=== PATIENT | female | born 1945 | race Native Hawaiian/Other Pacific Islander ===

== ENCOUNTER → 2018-10-17 11:47 | Outpatient (CLI) | payer MEDICARE, BC, SELFPAY ==
--- NOTE | 2018-10-17 11:49 | DI.MG.S_ITS ---
BILATERAL DIGITAL SCREENING MAMMOGRAM 3D/2D WITH CAD: 10/17/2018 CLINICAL: Routine screening. Comparison is made to exams dated: 03/31/2015 mammogram - [facility] and 06/22/2009 mammogram - [facility]. The tissue of both breasts is heterogeneously dense. This may lower the sensitivity of mammography. Current study was also evaluated with a Computer Aided Detection (CAD) system. There is a linear scar marker overlying the inner right breast. No significant masses, calcifications, or other findings are seen in either breast. There has been no significant interval change. IMPRESSION: NEGATIVE There is no mammographic evidence of malignancy. A 1 year screening mammogram is recommended. This exam was interpreted at Station ID: [id number]. NOTE: For mammograms, a report in lay terms will be sent to the patient. Approximately 15% of breast malignancies will not be visualized mammographically. In the management of a palpable breast mass, a negative mammogram must not discourage biopsy of a clinically suspicious lesion. Electronically Signed By: Jani Gardner M.D. ecl/:10/17/2018 19:46:54 letter sent: Normal Exam ACR BI-RADS Category 1: Negative 3341F
== END ==
PROVIDERS: PCP Internal Medicine
DX: Z12.31 Encounter for screening mammogram for malignant neoplasm of breast (principal)
CPT/HCPCS: 77063; 77067

== ENCOUNTER → 2019-03-05 14:13 | Outpatient (CLI) | payer MEDICARE, BC, SELFPAY ==
--- NOTE | 2019-03-05 | DI.MRI.S_ITS ---
PROCEDURE: MR KNEE LT WO CON INDICATIONS: PAIN IN LEFT KNEE POST TWISTING INJURY TECHNIQUE: Noncontrast sagittal PD fast spin echo and T2 fast spin echo with fat saturation, sagittal 3-D FLASH with fat saturation; coronal T1 spin echo and PD fast spin echo with fat saturation, and axial PD fast spin echo with fat saturation through the knee. COMPARISON: None. FINDINGS: Image quality: Excellent. Menisci: The medial and lateral menisci demonstrate normal morphology and internal signal. The meniscal root ligaments appear intact. Cruciate ligaments: The anterior and posterior cruciate ligaments appear intact. Medial structures: There is low grade proximal MCL sprain near its femoral insertion. The posterior oblique ligament, semimembranosus tendon insertions, oblique popliteal ligament, and meniscocapsular junction appear intact. Visualized portions of the pes anserinus tendons appear normal. No abnormal bursal fluid. Lateral structures: The lateral collateral ligament, long and short heads of the biceps femoris tendon appear intact. The popliteus tendon appears normal; the popliteofibular ligament appears intact. The posterosuperior and anteroinferior popliteomeniscal fascicles appear intact. The arcuate and fabellofibular ligaments appear intact, on either side of the lateral inferior geniculate artery. Iliotibial band appears normal. Anterior structures: The quadriceps and patellar tendons appear intact. Patellar alignment is normal. No femoral trochlear dysplasia or ventral trochlear prominence. No edema in the infrapatellar fat pad. Bones and cartilage: [id number] tricompartment osteoarthritis is seen more prominent in lateral femoral tibial compartment. There is marrow edema involving weight-bearing portion of lateral tibial plateau with suggestion of a 3 x 2 x 2 mm osteochondral lesion in lateral tibial plateau. Chondromalacia involving lateral facet of patella cartilage is also seen. No fracture or dislocation. Joint space: There is small to moderate amount of joint fluid. No Ramos's cyst. Normal appearing synovial plicae are incidentally noted. IMPRESSION: 1. Marrow edema involving lateral tibial plateau with suggestion of a tiny osteochondral lesion involving weight-bearing portion of lateral tibial plateau. Sylm-[id number]-[id number] tricompartment osteoarthritis. No fracture or dislocation. Small to moderate amount of joint fluid. 2. Cruciate ligaments are intact. No evidence of focal meniscal tear. 3. Low-grade proximal MCL sprain. 4. 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 Dictated by: Ed Rose M.D. on 03/05/2019 at 15:52 Approved by: Ed Rose M.D. on 03/05/2019 at 16:01
== END ==
PROVIDERS: PCP Internal Medicine; Visit Provider Orthopaedic Surgery
DX: S83.412A Sprain of medial collateral ligament of left knee, initial encounter (principal); M25.562 Pain in left knee; M17.12 Unilateral primary osteoarthritis, left knee; M22.42 Chondromalacia patellae, left knee
CPT/HCPCS: 73721

== ENCOUNTER → 2020-09-10 12:24 | Outpatient (CLI) | payer MEDICARE, BC, SELFPAY ==
--- NOTE | 2020-09-10 12:26 | DI.RAD.S_ITS ---
PROCEDURE: XR DEXA AXIAL SKELETON INDICATIONS: Routine Bone Density Screening COMPARISON: None. FINDINGS: This blank DEXA report has been sent in error by the PACS system. The correct and complete report will be forthcoming in 1-2 days. Thank you for your patience and understanding. Dictated by: Madeline Little MD, PhD on 09/10/2020 at 17:05 Approved by: Madeline Little MD, PhD on 09/10/2020 at 17:05
--- NOTE | 2020-09-10 12:26 | DI.MG.S_ITS ---
BILATERAL DIGITAL SCREENING MAMMOGRAM 3D/2D WITH CAD: 09/10/2020 CLINICAL: Routine screening. Comparison is made to exams dated: 10/17/2018 mammogram, 03/31/2015 mammogram - [facility], and 06/22/2009 mammogram - [facility]. The tissue of both breasts is heterogeneously dense. This may lower the sensitivity of mammography. Current study was also evaluated with a Computer Aided Detection (CAD) system. No significant masses, calcifications, or other findings are seen in either breast. There has been no significant interval change. IMPRESSION: NEGATIVE There is no mammographic evidence of malignancy. A 1 year screening mammogram is recommended. This exam was interpreted at Station ID: [id number]. NOTE: For mammograms, a report in lay terms will be sent to the patient. Approximately 15% of breast malignancies will not be visualized mammographically. In the management of a palpable breast mass, a negative mammogram must not discourage biopsy of a clinically suspicious lesion. Electronically Signed By: Destiny robledo/srini:09/10/2020 16:50:51 letter sent: Normal Exam ACR BI-RADS Category 1: Negative 3341F
== END ==
PROVIDERS: PCP Physician Assistant Medical; Referring Provider Obstetrics & Gynecology; Visit Provider Obstetrics & Gynecology
DX: Z12.31 Encounter for screening mammogram for malignant neoplasm of breast (principal); Z13.820 Encounter for screening for osteoporosis; M81.0 Age-related osteoporosis without current pathological fracture; Z78.0 Asymptomatic menopausal state; Z91.89 Other specified personal risk factors, not elsewhere classified
CPT/HCPCS: 77063; 77067; 77080

== ENCOUNTER → 2022-06-08 14:43 | Outpatient (CLI) | payer MEDICARE, BC, SELFPAY ==
--- NOTE | 2022-06-08 | DI.MG.S_ITS ---
BILATERAL DIGITAL SCREENING MAMMOGRAM 3D/2D WITH CAD: 06/08/2022 CLINICAL: Routine screening. Comparison is made to exams dated: 09/10/2020 mammogram, 10/17/2018 mammogram, and 03/31/2015 mammogram - [facility]. The tissue of both breasts is heterogeneously dense. This may lower the sensitivity of mammography. Current study was also evaluated with a Computer Aided Detection (CAD) system. No significant masses, calcifications, or other findings are seen in either breast. There has been no significant interval change. IMPRESSION: NEGATIVE There is no mammographic evidence of malignancy. A 1 year screening mammogram is recommended. Based on the Tyrer Cuzick model (a risk assessment model) the patient's lifetime risk is 2.9% and her 10 year risk is 0.0%. According to the ACR, ACS, and NCCN guidelines, an annual breast MRI exam along with mammogram is recommended if the patient's lifetime risk is 20% or greater. This exam was interpreted at Station ID: [id number]. NOTE: For mammograms, a report in lay terms will be sent to the patient. Approximately 15% of breast malignancies will not be visualized mammographically. In the management of a palpable breast mass, a negative mammogram must not discourage biopsy of a clinically suspicious lesion. Electronically Signed By: Salvador vogel/srini:06/08/2022 17:33:03 letter sent: Normal Exam ACR BI-RADS Category 1: Negative 3341F
== END ==
PROVIDERS: PCP Physician Assistant Medical; Referring Provider Physician Assistant Medical; Visit Provider Physician Assistant Medical
DX: Z12.31 Encounter for screening mammogram for malignant neoplasm of breast (principal)
CPT/HCPCS: 77063; 77067

== ENCOUNTER → 2022-11-16 12:43 | Outpatient (CLI) | payer MEDICARE, BC, SELFPAY ==
--- NOTE | 2022-11-16 | DI.CT.S_ITS ---
PROCEDURE: CT SINUS SCREEN WO CON INDICATIONS: Chronic pansinusitis/Headache, unspecified/Otalgia TECHNIQUE: Noncontrast 3.0 mm axial images acquired from the frontal sinuses to the mid-sella, with coronal and sagittal reformats. For radiation dose reduction, the following was used: automated exposure control, adjustment of mA and/or kV according to patient size. COMPARISON: None. FINDINGS: Image quality: Diagnostic Maxillary Sinuses: Sinuses are clear. The medial wall of the left maxillary sinus has been removed. Ethmoid Air Cells: No bony remodeling or destruction. Sinuses are clear. Sphenoid Sinuses: No bony remodeling or destruction. Sinuses are clear. Frontal Sinuses: No bony remodeling or destruction. Sinuses are clear. The right frontal sinus is non developed. Ostiomeatal Complexes: The left ostiomeatal complex has been removed. 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 Miscellaneous: Visualized intra-orbital contents are normal. 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 There is minimal leftward nasal septal deviation. IMPRESSION: No significant active paranasal sinus disease is seen. Prior postoperative change, with left antrectomy. Dictated by: Jostin Saini M.D. on 11/16/2022 at 14:09 Approved by: Jostin Saini M.D. on 11/16/2022 at 14:10
== END ==
PROVIDERS: PCP Physician Assistant Medical; Referring Provider Otolaryngology; Visit Provider Otolaryngology
DX: J32.4 Chronic pansinusitis (principal); R51.9 Headache, unspecified; H92.02 Otalgia, left ear
CPT/HCPCS: 70486

== ENCOUNTER → 2024-04-18 | Outpatient (CLI) | payer MEDICARE, BC, SELFPAY ==
--- NOTE | 2024-04-18 10:45 | DI.US.S_ITS ---
PROCEDURE: US EXTREMITY NONVASC LOWER LT INDICATIONS: Ruling out DVT or possible bakers cyst TECHNIQUE: Real-time scanning was performed of the left leg, with image documentation. COMPARISON: [facility], CR, XR KNEE 4+ VIEWS LEFT, 02/29/2024, 15:51. FINDINGS: In the region of clinical concern at the left medial knee there is a small fluid collection measuring 3.8 x 3.6 x 1 cm, estimated volume of 7 cc. The collection has a oblong appearance. There is posterior through transmission. There is likely internal echoes. No significant surrounding hyperemia. There is subcutaneous edema. IMPRESSION: Small fluid collection at the left medial knee measuring 3.8 cm and approximately 7 cc. This collection is not the typical location of a Ramos's cyst. Patient reports tenderness in this region. This could represent a seroma. Difficult to exclude small abscess. If clinically indicated aspiration could be performed. Dictated by: Salvador Horne M.D. on 04/18/2024 at 11:19 Approved by: Salvador Horne M.D. on 04/18/2024 at 11:23
== END ==
PROVIDERS: PCP Physician Assistant Medical; Referring Provider Orthopaedic Surgery; Visit Provider Orthopaedic Surgery
DX: R60.0 Localized edema (principal); Z96.652 Presence of left artificial knee joint
CPT/HCPCS: 76882

== ENCOUNTER → 2024-05-23 12:46 | Outpatient (CLI) | payer MEDICARE, BC, SELFPAY ==
--- NOTE | 2024-05-23 12:47 | DI.RAD.S_ITS ---
PROCEDURE: XR DEXA AXIAL SKELETON INDICATIONS: OSTEOPOROSIS SCREENING COMPARISON: [facility], , XR DEXA AXIAL SKELETON, 09/10/2020, 13:15. [facility], CR, DEXA AXIAL SKELETON, 06/10/2015, 14:57. FINDINGS: Left Hip: Bone mineral density 0.701 g/cm2, T score -2.0, no statistically significant change compared to prior. Left Femoral Neck: Bone mineral density 0.553 g/cm2, T score -2.7. Right Hip: Bone mineral density 0.683 g/cm2, T score -2.1, statistically significant increase in bone mineral density by 6.9%. Right Femoral Neck: Bone mineral density 0.551 g/cm2, T score -2.7. Left Forearm: Bone mineral density 0.640 g/cm2, T score -0.9. Fracture Risk Calculation (when applicable): 10-year fracture risk of a major osteoporotic fracture 20% and of a hip fracture 7.4%. (T score greater or equal to -1.0 to: NORMAL) (T score from -1.1 to -2.4: OSTEOPENIA) (T score less than or equal to -2.5: OSTEOPOROSIS) IMPRESSION: Osteoporosis by WHO classification. Follow-up guidelines as follows: Osteoporosis: Consider a repeat DEXA and Vertebral Fracture Assessment (VFA) exam in 2 years or sooner if medically necessary, to reassess this patient's status. Osteopenia: Consider a repeat DEXA in 2-3 years to reassess this patient's status, or if there is a new clinical indication. Normal: Consider a repeat DEXA in 5 years or sooner, or if there is a new clinical indication. All treatment decisions require clinical judgment and consideration of individual patient factors, including patient preferences, comorbidities, previous drug use, risk factors not captured in the FRAX model (e.g., frailty, falls, vitamin D deficiency, increased bone turnover, interval significant decline in bone density ) and possible under- or over-estimation of fracture risk by FRAX. In addition, the NOF Guide recommends that FDA-approved medical therapies be considered in postmenopausal women and men age >= 50 years with a: * Hip or vertebral (clinical or morphometric) fracture * T-score of <=-2.5 at the spine or hip * Ten-year fracture probability by FRAX of >= 3% for hip fracture or >=20% for major osteoporotic fracture. People with diagnosed cases of osteoporosis or at high risk for fracture should have regular bone mineral density tests. For patients eligible for Medicare, routine testing is allowed once every 2 years. The testing frequency can be increased to one year for patients who have rapidly progressing disease, those who are receiving or discontinuing medical therapy to restore bone mass, or have additional risk factors. Dictated by: Hollis Lorenzo M.D. on 05/24/2024 at 10:07 Approved by: Hollis Lorenzo M.D. on 05/24/2024 at 10:08
== END ==
LOC: RAD 12:47
PROVIDERS: PCP Physician Assistant Medical; Referring Provider Physician Assistant Medical; Visit Provider Physician Assistant Medical
DX: Z78.0 Asymptomatic menopausal state (principal); M81.0 Age-related osteoporosis without current pathological fracture
CPT/HCPCS: 77080; 77081